=== PATIENT | female | born 1940 | race Caucasian/White ===

== ENCOUNTER → 2017-10-11 | Outpatient (CLI) | payer MEDICARE ==
[~2017-10-11] MED LIST: ASCO-191 PO; AUG500 PO; CALC500T6 PO; EST3 PO; LEV75 PO; LOR5 PO; MULT-1372 PO; SIM10 PO
--- NOTE | 2017-10-11 11:27 | RADIOLOGY IMAGING REPORT ---
FACILITY: [facility] PATIENT NAME: Mary Ballard : 1940 MR: [id number] V: [id number] EXAM DATE: ORDERING PHYSICIAN: ROXANN PENDLETON TECHNOLOGIST: Location: [facility] - [place] Patient: Mary Ballard : 1940 Visit/Account:[id number] Date of Sevice: 10/11/2017 DEXA Scan Clinical history: Postmenopausal. Comparison: DEXA scan from 06/13/2010. LUMBAR SPINE: The bone mineral density (BMD) measured from L1-L4 correlates with a Z-score of 1.9 and a T-score of 0.5 which is Normal as defined by the World Health Organization. The corresponding risk of fracture in the lumbar spine is Not increased compared with a young adult reference population. This value jean s increased by one % since the prior study. More than 5% change is considered significant. HIP: Bone mineral density (BMD) measured in the LEFT total hip region correlates with a Z-score 0.5 and a T-score of -1.1 which is osteopenia as defined by the World Health Organization. The corresponding r isk of fracture in the hip is 2-3 times increased compared to a young adult reference population. Thi s value has decrease by 11.4 % since the prior study. More than 5% change is considered significant. T score left femoral neck -0.7 Bone mineral density (BMD) measured in the Femoral Neck region measures 0.941 g/cm?. IMPRESSION: 1. Lumbar spine: Normal. There has been 1% increase in the bone mineral density since the previous exam. 2. Left Total Hip: Osteopenia. There has been 11.4% decrease in the bone mineral density since the previous exam. 3. Femoral Neck: Bone Mineral Density is 0.941 g/cm? The next DEXA scan of this patient should include the following sites: L1-L4 and the left hip. FRAX? WHO Fracture Risk Assessment Tool link: <http://www.shef.ac.uk/FRAX/tool.jsp?locationValue=9> PLEASE NOTE: 1) The World Health Organization defines low BMD as follows: T-score Normal > -1 Osteopenia < -1 and > -2.5 Osteoporosis < -2.5 without fractures Established osteoporosis < -2.5 with fractures 2) In general, you may wish to consider: Diagnosis Treatment Follow-up DEXA Normal BMD Prevention 2-3 years Osteopenia Prevention/therapy 1-2 years Osteoporosis Therapy Yearly 3) Fracture risk estimated from the T-score is more accurate for vertebral fractures (often spontane ous) than for hip fractures. Report Dictated By: Lacey Ovalle MD at 10/11/2017 11:22 AM Report E-Signed By: Lacey Ovalle MD at 10/11/2017 11:23 AM WSN:[email or web address]
== END ==
LOC: RAD 05:02
PROVIDERS: ATTEND Obstetrics & Gynecology
DX: Z13.820 Encounter for screening for osteoporosis (principal); M85.88 Other specified disorders of bone density and structure, other site
CPT/HCPCS: 77080

== ENCOUNTER 2018-06-17 02:19 | Observation (INO) | payer MEDICARE ==
[2018-06-17] VITALS (22 sets, daily range): BP systolic 116–187; BP diastolic 61–105
[~2018-06-17] VITALS: Ht 172.7 cm; Wt 73.9 kg
[2018-06-17] MEDS ORDERED: PROPOFOL EMUL(*) 10MG/ML 20 ML 20 ML ONE (06:55)
[2018-06-17] MEDS ORDERED: ROCURONIUM BROM 10 MG/ML 10 ML ONE (06:55)
[2018-06-17] MEDS ORDERED: SUCCINYLCHOL CHL 200MG/10ML VL ONE (06:55)
[2018-06-17] MEDS ORDERED: HYDROmorphone HCL 2 MG/ML SDV ONE (07:20)
[2018-06-17] MEDS ORDERED: fentaNYL CITR 100 MCG/2 ML AMP ONE ×2 (07:27→09:20)
--- NOTE | 2018-06-17 08:01 | RADIOLOGY IMAGING REPORT ---
FACILITY: [facility] PATIENT NAME: Mary Ballard : 1940 MR: [id number] V: [id number] EXAM DATE: ORDERING PHYSICIAN: TONY ENCISO TECHNOLOGIST: Location: [facility] - [place] Patient: Mary Ballard : 1940 Visit/Account:[id number] Date of Sevice: 06/17/2018 Study: L-SPINE >4 VIEWS Indication: Intraoperative film from laminectomy Comparison study: None available Findings: Single lateral view of the lumbosacral spine demonstrates a surgical instrument overlying t he posterior lumbar soft tissues at the L3 level. There is no evidence of acute bony abnormality. IMPRESSION: Intraoperative lumbar film. Report Dictated By: Brad Minaya at 06/17/2018 7:53 AM Report E-Signed By: Brad Minaya at 06/17/2018 7:55 AM WSN:[id number]
[2018-06-17] MEDS ORDERED: SUGAMMADEX SOD 200 MG/2 ML SDV ONE (08:41)
[2018-06-17] MEDS ORDERED: DIAZEPAM 5 MG TAB ONE (09:27)
[2018-06-17] MEDS ORDERED: PREGABALIN 75 MG CAPSULE PO ONE (09:30)
[2018-06-17] MEDS ORDERED: LIDOCAINE/SOD BICARB 8.4% SYR ID ONE (09:30)
[2018-06-17] MEDS ORDERED: ACETAMINOPHEN 500 MG TAB PO PRN (09:30)
[2018-06-17] MEDS ORDERED: oxyCODONE HCL 5 MG CAP PO PRN (09:30)
[2018-06-17] MEDS ORDERED: MAGNESIUM HYDROXIDE* 30ML UDCP PO PRN (09:30)
[2018-06-17] MEDS ORDERED: DIAZEPAM 5 MG TAB PO PRN (09:30)
[2018-06-17] MEDS ORDERED: BISACODYL 10 MG SUPP PR PRN (09:30)
[2018-06-17] MEDS ORDERED: ACETAMINOPHEN(*)1000 MG/100 ML 100 ML IVPB PRN (09:30)
[2018-06-17] MEDS ORDERED: ceFAZolin(*) 2GM/D5W 50ML 50 ML IVPB ONE (09:30)
[2018-06-17] MEDS ORDERED: BENZOCAINE/MENTHOL 1 EACH LOZG PO PRN (09:30)
[2018-06-17] MEDS ORDERED: FAMOTIDINE 20 MG TAB PO ONE (09:30)
[2018-06-17] MEDS ORDERED: NORMOSOL R SOLN(*) 1000 ML BAG 1,000 ML IV PRN (09:30)
[2018-06-17] MEDS ORDERED: diphenhydrAMINE 25 MG CAP PO PRN (09:30)
[2018-06-17] MEDS ORDERED: FLUSH 10 ML SYR IVP PRN (09:30)
[2018-06-17] MEDS ORDERED: HYDROmorphone HCL 2 MG/ML SDV IVP PRN (09:30)
[2018-06-17] MEDS ORDERED: ACETAMINOPHEN 500 MG TAB PO ONE (09:30)
[2018-06-17] MEDS ORDERED: LR(*) 1000 ML BAG 1,000 ML IV PRN (09:30)
[2018-06-17] MEDS ORDERED: ONDANSETRON 4 MG/2 ML VIAL IVP PRN (09:30)
[2018-06-17] MEDS ORDERED: APAP/HYDROCODONE 325/5 TAB PO PRN (09:30)
[2018-06-17] MEDS ORDERED: MIDAZOLAM 2 MG/2 ML VIAL IVP PRN (09:30)
--- NOTE | 2018-06-17 09:54 | OPERATIVE REPORT 1 ---
EVENT DATE: June 17, 2018 SURGEON: Zach Costello MD ANESTHESIOLOGIST: Evin Clinton MD ANESTHESIA: General endotracheal. STUDENT ASSISTANT: ROSEMARIE Craft, MEDICAL CODING TECHNICIAN PREOPERATIVE DIAGNOSIS L3-L5 spinal stenosis. POSTOPERATIVE DIAGNOSIS L3-L5 spinal stenosis. PROCEDURE PERFORMED L3-L4 and L4-L5 laminectomy. IV FLUIDS 1300 cc. ESTIMATED BLOOD LOSS 60 cc. IMPLANTS USED None. SPECIMENS None. DRAINS None. COMPLICATIONS None. DISPOSITION Post-Anesthesia Care Unit. INDICATIONS Ms. Ballard is a 78-year old female who presented with a complaint of radiating left leg pain, numbness, tingling and weakness. This has been going on for two to three years. In addition to the radiating symptoms, she noted a decrease in walking tolerance to only about 100 yards or less secondary to the radiating pain as well as weakness and heaviness in her legs. Her physical examination was significant only for decreased light touch sensation in deep perineal nerve distributions bilaterally. Her strength was good and range of motion was a little bit diminished but essentially normal. Her AP and lateral x-rays as well as MRIs showed degenerative disk disease at multiple levels. The MRI showed significant stenosis at L3-L4 and L4-L5, particularly in the lateral recesses and centrally but not so much in the foramina. There was no evidence of instability. Secondary to failure of physical therapy, medications, activity modification, etc. Ms. Ballard was ultimately offered and elected to undergo L3- L5 laminectomy. Prior to surgery, I explained in detail to the patient the possible risks of surgery. These risks include bleeding, infection, damage to surrounding structures, nerve root injury, spinal fluid leak, meningitis, need for further surgery, persistent and/or worsening pain, , blindness, sexual dysfunction, autonomic nervous system dysfunction and other unforeseen medical and surgical complications. An understanding that in general spinal surgery is more predictive at improving extremity discomfort than axial spine pain was stressed. DESCRIPTION OF PROCEDURE On the date of surgery, the patient was met in the preoperative hold area and all questions were answered. The operative site was identified and marked by myself. The patient was brought in good condition to the operating room and after succumbing to anesthesia was positioned in the prone position on a Сергей table. All bony protuberances and soft tissues were well padded in the standard fashion. Care was taken to maintain appropriate perfusion pressures during anesthesia. Preoperative antibiotics were administered according to the appropriate timing schedule. At the conclusion of the procedure, sponge and needle counts were correct x2. A final time-out was undertaken by members of the operating team to confirm correct patient, correct levels and correct surgery. The patient was then prepped and draped in the standard sterile orthopedic fashion and a vertical incision was made overlying the intended surgical levels. Sharp dissection was carried out down to the posterior elements. Soft tissues were elevated off the posterior elements in a subperiosteal manner and a lateral radiograph was obtained to confirm appropriate spinal levels. A self-retaining retractor was placed and distracted and the spinous processes of L3 and L4 were removed using a combination of a Leksell rongeur and a Ezuza bone cutter. The Leksell rongeur as well as a high-speed bur were used to thin the lamina in the midline at L3 and L4. A Sexton curette was used to undermine the superior insertion of the ligamentum flavum from the inferior aspect of the L4 lamina. Once we had entered the canal, a Irineo elevator was used to release any dural adhesions from surrounding bone and soft tissue prior to the use of the Kerrison punch. A #4 and #3 Kerrison were then used to perform a midline decompression. Bilateral lateral recess decompressions were performed again using a #3 and a #4 Kerrison punch. The Newfield elevator again was used to clear any dural adhesions from surrounding bone and soft tissue prior to use of the Kerrison rongeurs. Once the lateral recess decompressions were complete, the Irineo elevator was used to check the decompression in the lateral recesses as well as out the foramina of all involved nerve roots. An excellent decompression had been achieved. Hemostasis was obtained using FloSeal and surgical patties in the lateral recesses and the wound was then irrigated with copious sterile saline solution. The incision was then closed using Stratafix running suture for the deep fascia, inverted interrupted sutures for the subcutaneous tissue and then a running subcuticular skin stitch. Sponge and needle counts were correct x2. POSTOPERATIVE CARE PLAN Ms. Ballard will remain overnight in the hospital for observation. She will most likely be discharged home postoperative day #1 as long as she passes physical therapy and meets discharge criteria. She will then follow up in my clinic in two weeks' time for wound check and examination. LAUREN
--- NOTE | 2018-06-17 14:35 | Hospitalist Consultation ---
History of Present Illness Requesting Physician Dr. Costello Reason for Consult Medical Management Chief Complaint s/p lumbar surgery History of Present Illness She was admitted s/p lumbar surgery. It is reported the surgery went well and without complication. History Problems: (1) Hypothyroidism Status: Chronic (2) Hyperlipidemia Status: Chronic Home Meds Reported Medications Calcium Carbonate (CALCIUM) 500 Mg Tablet, 500 MG PO DAILY 01/20/14 Ascorbic Acid (VITAMIN C) 1,000 Mg Tablet, 1000 MG PO DAILY 01/20/14 Multivitamin (DAILY VALUE) 1 Each Tablet, 1 EACH PO DAILY 01/20/14 Levothyroxine Sodium (Synthroid/Levothroid) 0.075 Mg Tab, 0.075 MG PO QDAY, 0 Refills 03/17/08 Simvastatin (Zocor) 10 Mg Tab, 40 MG PO QHS, 0 Refills 03/17/08 Discontinued Reported Medications Estrogens Conjugated (Premarin) 0.3 Mg Tab, 0.3 MG PO QDAY, 0 Refills 03/17/08 Allergies: Coded Allergies: No Known Drug Allergies (Verified , 03/17/08) Patient History: FH: renal cell carcinoma FATHER, Hx Smoking: No (QUIT ) Smoking Status: Former Smoker Caffeine Intake: Coffee Caffeine/Cups Per Day: 1 CCD Hx Alcohol Use: No Hx Substance Use Disorder: No Social Drug Use: Never History of IV Drug Use: No Review of Systems All Systems Reviewed/Normal: Yes, Except as Noted Exam Vital Signs Vital Signs Date Time Temp Pulse Resp B/P (MAP) Pulse Ox O2 Delivery O2 Flow Rate FiO2 06/17/18 10:40 95 Nasal Cannula 2.0 06/17/18 10:26 97.5 65 16 138/72 (94) General Appearance: Alert, Awake, No Acute Distress, Afebrile Neuro: No Gross deficits Cardiovascular: Regular Rate and Rhythm Respiratory: No Respiratory Distress, Clear to Auscultation GI: Abd Soft and Non-Tender Psych: Alert & Oriented X3, Appropriate Mood & Affect Assessment and Plan Problems: (1) Status post lumbar surgery Status: Acute Assessment & Plan: Followed by Dr. Costello. (2) Hypothyroidism Status: Chronic Assessment & Plan: She is on chronic treatment with Levothyroxine. Continue. (3) Hyperlipidemia Status: Chronic Assessment & Plan: She is on chronic treatment with Simvastatin. Continue. Venous Thromboembolism Antithrombotics Is Pt On Any Antithrombotics?: No Prophylaxis Tx Contraindicated Pharmacological Contraindicati: Surgical Contraindication Exam Sepsis Risk: No Definite Risk PRASHANT ROBERSON [employer] MANAGER Jun 17, 2018 14:35
--- NOTE | 2018-06-17 15:36 | NUR ---
Physical Therapy Impression PT eval complete. Pt demonstrated safety and independence with functional mobility and is safe for DC when medically appropriate. Pt instructed in and returned demonstration of lumbar precautions. Physical Therapy Goals 1. SBA bed mobility. 2. SBA transfers. 3. SBA gait x 150' with appropriate assistive device. 4. Ascend/descend 1 step SBA. 5. Demonstrate understanding of lumbar precautions. Patient's Goals
[2018-06-17] MEDS: ceFAZolin(*) 2GM/D5W 50ML 50 ML IVPB SCH (16:03)
[2018-06-17] MEDS: DOCUSATE SODIUM 100 MG CAP PO SCH (20:42)
[2018-06-17] MEDS ORDERED: SIMVASTATIN 40 MG TAB PO SCH (21:00)
[2018-06-18] MEDS: ceFAZolin(*) 2GM/D5W 50ML 50 ML IVPB SCH ×2 (00:32→07:23)
[2018-06-18 02:15] VITALS: BP 151/66
[2018-06-18] MEDS ORDERED: LEVOTHYROXINE SOD 0.075 MG TAB PO SCH (06:00)
[2018-06-18 07:27] VITALS: BP 149/63
[2018-06-18] MEDS ORDERED: DOCU240C84 PO (07:51)
[2018-06-18] MEDS ORDERED: LOR5/325 PO (07:52)
[2018-06-18] MEDS ORDERED: DIA5 PO (07:53)
[2018-06-18] MEDS: DOCUSATE SODIUM 100 MG CAP PO SCH (08:28)
--- NOTE | 2018-06-18 09:55 | Hospitalist Progress Note ---
Subjective Progress Notes Subjective She was admitted after lumbar surgery. She has no complaints this morning. She had no acute events overnight. Patient Complains of: Cardiovascular: No: Chest Pain Respiratory: No: Shortness of Breath Physical Exam Vital Signs Date Time Temp Pulse Resp B/P (MAP) Pulse Ox O2 Delivery O2 Flow Rate FiO2 06/18/18 07:27 98.3 63 16 149/63 (91) 89 Room Air 06/18/18 02:15 0.5 Intake and Output 06/18/18 00:00 Intake Total 2428 ml Balance 2428 ml Intake Oral 150 ml IV Total 2278 ml # Voids 3 General Appearance: Alert, Awake, No Acute Distress, Afebrile Neuro: No Gross deficits Cardiovascular: Regular Rate and Rhythm Respiratory: No Respiratory Distress, Clear to Auscultation GI: Soft and Non-Tender Psych: Alert & Oriented X3, Appropriate Mood & Affect Assessment and Plan Problems: (1) Status post lumbar surgery Status: Acute Assessment & Plan: Followed by Dr. Costello. (2) Hypothyroidism Status: Chronic Assessment & Plan: She is on chronic treatment with Levothyroxine. Continue. (3) Hyperlipidemia Status: Chronic Assessment & Plan: She is on chronic treatment with Simvastatin. Continue. Exam Sepsis Risk: No Definite Risk PRASHANT ROBERSON Jun 18, 2018 09:55
== END 2018-06-18 07:39 | disposition home or self-care (01) ==
LOC: OR 02:19 → INTOOBSV 10:25 → MED 10:25
PROVIDERS: ADMIT Orthopaedic Surgery; ATTEND Orthopaedic Surgery
DX: M48.061 Spinal stenosis, lumbar region without neurogenic claudication (principal)
CPT/HCPCS: 63030; 63035; 72020; 97162; A9270; G0378; J0330; J1170; J2250; J2704; J3010; J7120; J0690